=== PATIENT | female | born 1995 | race American Indian/Alaskan Native ===

== ENCOUNTER 2018-11-15 15:58 | Emergency (ER) | payer BC ==
[2018-11-15 15:58] VITALS: BMI 29.5
[2018-11-15 16:33] VITALS: RESP 18
[2018-11-15 18:47] LABS: SQUAMOUS EPITHIAL 19 /hpf (0-5)
[2018-11-15 18:48] LABS: URINE BILIRUBIN NEGATIVE (NEGATIVE); URINE BLOOD NEGATIVE (NEGATIVE); URINE CLARITY Hazy (Clear); URINE COLOR Yellow (YELLOW); URINE GLUCOSE (UA) NORMAL (Normal); URINE LEUKOCYTE ESTERASE TRACE Leu/uL (Negative); URINE PROTEIN NEGATIVE (NEGATIVE)
[2018-11-15 18:57] VITALS: BP 113/74; PULSE 93; TEMP 98.3; O2SAT 96
--- NOTE | 2018-11-16 00:32 | C.PDOC ---
History Of Present Illness 22 y/o female with no significant PMH presents to the ED c/o vaginal discharge and itching x 2 days. Discharge is white and thick. Has been using OTC vagasil without relief. Pt is sexually active with 1 male partner with protection. Pt recently saw her OBGYN last month and was tested/treated for gonorrhea and chlamydia. Denies new sexual partners or serious concern for STD. LMP 10/31/18. Denies fever, chills, abdominal pain, vaginal bleeding, vaginal odor, urinary symptoms, abdominal pain, N/V, back pain, or any other associated symptoms. Time Seen by Provider: 11/15/18 16:33 Chief Complaint (Nursing): Female Genitourinary History Per: Patient History/Exam Limitations: no limitations Onset/Duration Of Symptoms: Days Current Symptoms Are (Timing): Still Present Severity: Mild Past Medical History Reviewed: Historical Data, Nursing Documentation, Vital Signs Vital Signs: Last Vital Signs Temp 98.3 F 11/15/18 18:57 Pulse 93 H 11/15/18 18:57 Resp 18 11/15/18 18:57 BP 113/74 11/15/18 18:57 Pulse Ox 96 11/15/18 18:57 - Medical History PMH: No Chronic Diseases Family History: States: Unknown Family Hx - Social History Hx Tobacco Use: Yes Hx Alcohol Use: No Hx Substance Use: No - Immunization History Hx Tetanus Toxoid Vaccination: No Hx Influenza Vaccination: No Hx Pneumococcal Vaccination: No Review Of Systems Constitutional: Negative for: Fever, Chills Eyes: Negative for: Vision Change ENT: Negative for: Nose Congestion, Throat Pain Cardiovascular: Negative for: Chest Pain, Palpitations, Light Headedness Respiratory: Negative for: Cough, Shortness of Breath Gastrointestinal: Negative for: Nausea, Vomiting, Abdominal Pain, Diarrhea Genitourinary: Positive for: Vaginal Discharge. Negative for: Vaginal Bleeding, Pelvic Pain, Rash Musculoskeletal: Negative for: Neck Pain, Back Pain Skin: Negative for: Rash, Lesions Neurological: Negative for: Weakness, Numbness, Headache, Dizziness Physical Exam - Physical Exam Appears: Well, No Acute Distress Skin: Normal Color, Warm, Dry Head: Atraumatic, Normacephalic Eye(s): bilateral: Normal Inspection, PERRL, EOMI Nose: Normal Oral Mucosa: Moist Throat: Normal Neck: Normal, Normal ROM, Supple Cardiovascular: Rhythm Regular Respiratory: Normal Breath Sounds Gastrointestinal/Abdominal: Soft, No Tenderness, No Distention, No Guarding Back: Normal Inspection, No CVA Tenderness Pelvic: Normal External Exam, Normal Bimanual Exam, No Vaginal Bleeding, Vaginal Discharge (white, thick, suspicious for candidal infection), No Cervical Motion Tenderness, No Adnexal Tenderness, No Tender Uterus Extremity: Normal ROM, Capillary Refill (<2s) Pulses: Left Radial: Normal, Right Radial: Normal Neurological/Psych: Oriented x3, Normal Speech, Normal Motor, Normal Sensation Gait: Steady ED Course And Treatment - Laboratory Results Lab Results: Urine Color Yellow (YELLOW) 11/15/18 18:25 Urine Clarity Hazy (Clear) 11/15/18 18:25 Urine pH 6.0 (5.0-8.0) 11/15/18 18:25 Ur Specific [place] 1.026 (1.003-1.030) 11/15/18 18:25 Urine Protein Negative mg/dL (NEGATIVE) 11/15/18 18:25 Urine Glucose (UA) Normal mg/dL (Normal) 11/15/18 18:25 Urine Ketones Negative mg/dL (NEGATIVE) 11/15/18 18:25 Urine Blood Negative (NEGATIVE) 11/15/18 18:25 Urine Nitrate Negative (NEGATIVE) 11/15/18 18:25 Urine Bilirubin Negative (NEGATIVE) 11/15/18 18:25 Urine Urobilinogen 2.0 mg/dL (0.2-1.0) H 11/15/18 18:25 Ur Leukocyte Esterase Trace [place]/uL (Negative) 11/15/18 18:25 Urine WBC (Auto) 2 /hpf (0-5) 11/15/18 18:25 Urine RBC (Auto) 2 /hpf (0-3) 11/15/18 18:25 Ur Squamous Epith Cells 19 /hpf (0-5) H 11/15/18 18:25 O2 Sat by Pulse Oximetry: 96 Medical Decision Making Medical Decision Making: Initial Plan: * UA, culture * Pelvic exam * GC/Chlamydia Pelvic exam reveals findings suspicious for candidal infection. Will treat with Diflucan 150mg PO x 1 and miconazole cream for home. Patient refusing treatment for gonorrhea and chlamydia at this visit. States she would rather wait for the results and receive treatment if necessary. ADvised to abstain from sexual activity until she is aware of the results, and inform partners to be treated if results are positive. Advised OBGYN and PMD followup within 2 days. Diagnostic testing results and plan of care discussed with patient. Strict instructions given regarding prescription use, importance of followup, and signs/symptoms to return to ER including abdominal pain, fever, chills, or any other new/worsening symptoms. Pt verbalized understanding of discussion. Patient is A&Ox3, ambulating with steady gait, with vital signs stable for discharge. Disposition - Disposition [facility] Disposition: HOME/ ROUTINE Disposition Time: 18:35 Condition: GOOD Additional Instructions: Vaginal cream daily for 7 days You will be called in 4-5 days if your testing results are positive If you are not called, call [facility] Department for results Abstain from sexual activity until the results of your testing are complete Followup with OBGYN on Wednesday as scheduled Return to ER with any new/worsening symptoms Prescriptions: Miconazole 2% Vaginal [Monistat 7 Vaginal Cream] 1 applic VG DAILY 7 Days #1 tube Instructions: Vulvovaginal Yeast Infection Forms: General Discharge Instructions, Work/School/Gym Excuse, [facility] (Welsh) - Clinical Impression Clinical Impression: Vulvovaginal candidiasis
== END 2018-11-15 18:58 | disposition home or self-care (01) ==
LOC: C.ER 15:58
DX: B37.3 Candidiasis of vulva and vagina (principal); Z72.0 Tobacco use